=== PATIENT | female | born 1980 | race Caucasian/White ===

== ENCOUNTER 2021-01-06 00:44 | Emergency (ER) | payer OTHER ==
[2021-01-06 01:52] LABS: BASOPHIL 0.1 % (0-2); EOSINOPHIL 0 % (0-5); HCT 16.4 % (37.0-47.0); LYMPHOCYTE 5.5 % (15-48); MCH 34.4 pg (25.0-31.0); MCHC 32.3 g/dL (32.0-36.0); MCV 106.5 fL (78.0-100.0); MONOCYTE 12.6 % (0-12); MPV 11.2 fL (6.0-9.5); NEUTROPHIL 80.3 % (41-80); NRBC 1.1; RBC 1.54 M/uL (4.20-5.40); RDW 15.9 % (11.5-14.0); WBC 9.3 K/uL (4.0-10.5)
[2021-01-06 02:00] LABS: INR 2.13 (0.9-1.2); PROTHROMBIN TIME 22.7 SECONDS (11.4-13.6); PTT 39.8 SECONDS (22.2-34.7)
[2021-01-06 02:08] LABS: ALBUMIN 1.7 g/dL (3.4-5.0); BILIRUBIN - TOTAL 4.8 mg/dL (0.2-1.0); BUN/CREAT RATIO (CALC) 56.9 RATIO; CREATININE 0.65 mg/dL (0.51-0.95); GLOBULIN (CALCULATION) 4.5 g/dL; POTASSIUM 3.3 mmol/L (3.5-5.1); TOTAL PROTEIN 6.2 g/dL (6.4-8.2)
[2021-01-06 02:12] LABS: LACTIC ACID 6.8 mmol/L (0.4-1.9)
[2021-01-06 02:18] LABS: HGB 5.3 g/dl (12.5-16.0)
[2021-01-06 02:19] LABS: PLT 80 K/uL (150-400)
[2021-01-06 08:39] LABS: ACETAMINOPHEN (TYLENOL) < 2.0 ug/mL (10.0-30.0); PHOSPHORUS 2.3 mg/dL (2.6-4.7)
[2021-01-06 08:58] LABS: HCT 20.4 % (37.0-47.0); HGB 6.8 g/dL (12.5-16.0)
[2021-01-06 09:03] LABS: AMPHETAMINES NEGATIVE (NEGATIVE); BARBITURATES NEGATIVE (NEGATIVE); ECSTASY (MDMA) NEGATIVE (NEGATIVE); MARIJUANA (THC) NEGATIVE (NEGATIVE); METHADONE NEGATIVE (NEGATIVE); OPIATES NEGATIVE (NEGATIVE); OXYCODONE NEGATIVE (NEGATIVE)
[2021-01-06 09:04] LABS: BILIRUBIN 1+ mg/dL (NEGATIVE); BLOOD NEGATIVE Ery/uL (NEGATIVE); CLARITY CLEAR (CLEAR); GLUCOSE (U) TRACE mg/dL (NORMAL); LEUKOCYTES NEGATIVE Leu/uL (NEGATIVE); NITRITE NEGATIVE (NEGATIVE); PROTEIN NEGATIVE (NEGATIVE); SPECIFIC GRAVITY 1.015 (1.001-1.030)
[2021-01-06 09:05] LABS: COLOR AMBER (YELLOW)
[2021-01-06 09:15] LABS: BACTERIA TRACE; URINARY RBC RARE
[2021-01-06 09:16] LABS: BILIRUBIN CRYSTALS TRACE
[2021-01-06 10:30] LABS: HCT 20.1 % (37.0-47.0); HGB 6.6 g/dL (12.5-16.0)
[2021-01-06 15:49] LABS: HCT 25.7 % (37.0-47.0); HGB 8.1 g/dL (12.5-16.0)
== END 2021-01-06 15:40 | disposition other institution (70) ==
LOC: FER 00:44
PROVIDERS: Emergency Medicine; Emergency Medicine Emergency Medical Services
DX: K92.0 Hematemesis (principal); K74.60 Unspecified cirrhosis of liver; D64.9 Anemia, unspecified; K76.6 Portal hypertension; R00.0 Tachycardia, unspecified; Z20.822 Contact with and (suspected) exposure to COVID-19; R41.82 Altered mental status, unspecified
CPT/HCPCS: 36415; 36430; 70450; 71045; 72125; 80053; 80305; 81001; 82140; 82150; 82247; 83605; 83690; 84100; 84484; 85014; 85018; 85025; 85610; 85730; 86850; 86900; 86901; 86922; 87040; 87088; 93005; 96365; 96366; 96375; C9113; G0480; J2060; J2354; J2405; J2543; J3411; J3475; J7030; J7120; P9016; Q9967; U0002

== ENCOUNTER 2021-03-01 09:41 | Inpatient (IN) | payer OTHER ==
[~2021-03-01] VITALS: Ht 165.1 cm; Wt 77.3 kg
[2021-03-01 10:36] LABS: ALBUMIN 2.2 g/dL (3.4-5.0); BILIRUBIN - TOTAL 2.7 mg/dL (0.2-1.0); BUN/CREAT RATIO (CALC) 6.9 RATIO; CREATININE 0.58 mg/dL (0.51-0.95); GLOBULIN (CALCULATION) 6.6 g/dL; POTASSIUM 3.6 mmol/L (3.5-5.1); TOTAL PROTEIN 8.8 g/dL (6.4-8.2)
[2021-03-01 11:38] LABS: BASOPHIL 0.7 % (0-2); EOSINOPHIL 0 % (0-5); HCT 29.3 % (37.0-47.0); HGB 9.5 g/dl (12.5-16.0); LYMPHOCYTE 15.4 % (15-48); MCH 31.4 pg (25.0-31.0); MCHC 32.4 g/dL (32.0-36.0); MCV 96.7 fL (78.0-100.0); MONOCYTE 14.3 % (0-12); NRBC 0; RBC 3.03 M/uL (4.20-5.40); RDW 20.6 % (11.5-14.0); WBC 4.5 K/uL (4.0-10.5)
[2021-03-01 11:41] LABS: PLT 18 K/uL (150-400)
[2021-03-01 11:55] LABS: RETICULOCYTE COUNT 2.6 % (1.0-2.0)
[2021-03-01 12:27] LABS: BILIRUBIN NEGATIVE (NEGATIVE); BLOOD 3+ Ery/uL (NEGATIVE); CLARITY CLEAR (CLEAR); COLOR YELLOW (YELLOW); GLUCOSE (U) NORMAL (NORMAL); LEUKOCYTES NEGATIVE Leu/uL (NEGATIVE); NITRITE NEGATIVE (NEGATIVE); PROTEIN TRACE (LOW) mg/dL (NEGATIVE); UROBILINOGEN 0.2 mg/dL (0.2-1.0)
[2021-03-01 12:32] LABS: AMPHETAMINES NEGATIVE (NEGATIVE); BARBITURATES NEGATIVE (NEGATIVE); ECSTASY (MDMA) NEGATIVE (NEGATIVE); MARIJUANA (THC) NEGATIVE (NEGATIVE); METHADONE NEGATIVE (NEGATIVE); OPIATES NEGATIVE (NEGATIVE)
[2021-03-01 12:33] LABS: OXYCODONE NEGATIVE (NEGATIVE)
[2021-03-01 13:05] LABS: BACTERIA TRACE; URINARY WBC RARE
[2021-03-01 13:23] LABS: FOLIC ACID (SERUM) 12.6 ng/mL (8.6-58.9)
[2021-03-01 18:09] LABS: BUN/CREAT RATIO (CALC) 7.7 RATIO; CREATININE 0.65 mg/dL (0.51-0.95); MAGNESIUM 1.7 mg/dL (1.8-2.4); POTASSIUM 3.2 mmol/L (3.5-5.1)
[2021-03-02 06:14] LABS: INR 1.69 (0.9-1.2); PROTHROMBIN TIME 19.1 SECONDS (11.8-13.4); PTT 50.1 SECONDS (24.4-34.7)
[2021-03-02 07:28] LABS: BASOPHIL 0.2 % (0-2); EOSINOPHIL 0.2 % (0-5); HCT 26.8 % (37.0-47.0); HGB 8.7 g/dl (12.5-16.0); LYMPHOCYTE 10.1 % (15-48); MCHC 32.5 g/dL (32.0-36.0); MCV 95.4 fL (78.0-100.0); MONOCYTE 14.6 % (0-12); NEUTROPHIL 74.1 % (41-80); NRBC 0; RBC 2.81 M/uL (4.20-5.40); RDW 20.1 % (11.5-14.0); WBC 5.1 K/uL (4.0-10.5)
[2021-03-02 07:30] LABS: PLT 18 K/uL (150-400)
[2021-03-02 07:38] LABS: BILIRUBIN - TOTAL 3.3 mg/dL (0.2-1.0); BUN/CREAT RATIO (CALC) 15.1 RATIO; CREATININE 0.53 mg/dL (0.51-0.95); POTASSIUM 3.7 mmol/L (3.5-5.1)
[2021-03-03 03:58] LABS: BASOPHIL 0.2 % (0-2); EOSINOPHIL 0.2 % (0-5); HCT 24.7 % (37.0-47.0); HGB 8.2 g/dl (12.5-16.0); LYMPHOCYTE 10.1 % (15-48); MCH 30.9 pg (25.0-31.0); MCHC 33.2 g/dL (32.0-36.0); MCV 93.2 fL (78.0-100.0); MONOCYTE 17.9 % (0-12); MPV 11.9 fL (6.0-9.5); NEUTROPHIL 71.1 % (41-80); NRBC 0; RBC 2.65 M/uL (4.20-5.40); RDW 19.4 % (11.5-14.0); WBC 5.9 K/uL (4.0-10.5)
[2021-03-03 04:27] LABS: PLT 28 K/uL (150-400)
[2021-03-03 04:40] LABS: BUN/CREAT RATIO (CALC) 14.3 RATIO; CREATININE 0.49 mg/dL (0.51-0.95); POTASSIUM 3.5 mmol/L (3.5-5.1)
[2021-03-04 00:34] LABS: BILIRUBIN 2+ mg/dL (NEGATIVE); BLOOD 3+ Ery/uL (NEGATIVE); CLARITY CLEAR (CLEAR); COLOR YELLOW (YELLOW); GLUCOSE (U) NORMAL (NORMAL); LEUKOCYTES NEGATIVE Leu/uL (NEGATIVE); NITRITE NEGATIVE (NEGATIVE); PROTEIN NEGATIVE (NEGATIVE); UROBILINOGEN 0.2 mg/dL (0.2-1.0)
[2021-03-04 00:39] LABS: BACTERIA TRACE; URINARY RBC 20-50; URINARY WBC RARE
[2021-03-04 00:40] LABS: AMORPHOUS URATES CRYSTALS TRACE; MUCOUS MODERATE; SQUAMOUS EPITHELIAL CELLS RARE
[2021-03-04 06:23] LABS: BASOPHIL 0.3 % (0-2); HCT 25.2 % (37.0-47.0); LYMPHOCYTE 11.5 % (15-48); MCH 31.4 pg (25.0-31.0); MCHC 31.7 g/dL (32.0-36.0); MONOCYTE 22.7 % (0-12); NEUTROPHIL 64.2 % (41-80); NRBC 0; RBC 2.55 M/uL (4.20-5.40)
[2021-03-04 06:43] LABS: ALBUMIN 1.8 g/dL (3.4-5.0); BILIRUBIN - TOTAL 3.2 mg/dL (0.2-1.0); CREATININE 0.5 mg/dL (0.51-0.95); GLOBULIN (CALCULATION) 5.4 g/dL; MAGNESIUM 1.6 mg/dL (1.8-2.4); POTASSIUM 2.7 mmol/L (3.5-5.1); TOTAL PROTEIN 7.2 g/dL (6.4-8.2)
[2021-03-04 07:20] LABS: MCV 98.8 fL (78.0-100.0)
[2021-03-04 07:23] LABS: PLT 28 K/uL (150-400)
[2021-03-04 16:31] LABS: BUN/CREAT RATIO (CALC) 8.3 RATIO; CREATININE 0.48 mg/dL (0.51-0.95); MAGNESIUM 2.1 mg/dL (1.8-2.4); POTASSIUM 3.8 mmol/L (3.5-5.1)
[2021-03-05 06:05] LABS: BASOPHIL 0.5 % (0-2); HCT 22.1 % (37.0-47.0); LYMPHOCYTE 22.1 % (15-48); MCH 31.3 pg (25.0-31.0); MCHC 31.7 g/dL (32.0-36.0); MCV 98.7 fL (78.0-100.0); MONOCYTE 26.5 % (0-12); MPV 12.5 fL (6.0-9.5); NEUTROPHIL 48.9 % (41-80); NRBC 0; RBC 2.24 M/uL (4.20-5.40)
[2021-03-05 06:11] LABS: PLT 30 K/uL (150-400)
[2021-03-05 06:14] LABS: ALBUMIN 1.6 g/dL (3.4-5.0); BILIRUBIN - TOTAL 2.2 mg/dL (0.2-1.0); BUN/CREAT RATIO (CALC) 4.3 RATIO; CREATININE 0.46 mg/dL (0.51-0.95); GLOBULIN (CALCULATION) 5.1 g/dL; MAGNESIUM 1.7 mg/dL (1.8-2.4); POTASSIUM 3.4 mmol/L (3.5-5.1); TOTAL PROTEIN 6.7 g/dL (6.4-8.2)
--- NOTE | 2021-03-05 14:20 | NUR ---
03/05/21 A referral was made to the Resource [facility] Supervisor due to report of patient not having a PCP. Pietro reports patient to be current with Sach[facility]. However, she has had multiple missed appointments. Pietro will attempt to schedule a new appointment.
[2021-03-06 03:06] LABS: HBSAG SCREEN Negative (Negative); HEP B CORE AB, TOT Negative (Negative); HEP C VIRUS AB 7.8 (0.0-0.9); HIV SCREEN 4TH GENERATION WRFX Non Reactive (Non Reactive)
[2021-03-06 06:24] LABS: BASOPHIL 0.9 % (0-2); EOSINOPHIL 3.1 % (0-5); HCT 28.2 % (37.0-47.0); LYMPHOCYTE 19.7 % (15-48); MCH 30.6 pg (25.0-31.0); MCHC 31.9 g/dL (32.0-36.0); MCV 95.9 fL (78.0-100.0); MPV 11.9 fL (6.0-9.5); NEUTROPHIL 53.6 % (41-80); NRBC 0; RBC 2.94 M/uL (4.20-5.40); RDW 20.5 % (11.5-14.0); WBC 2.3 K/uL (4.0-10.5)
[2021-03-06 06:32] LABS: MONOCYTE 21.4 % (0-12); PLT 49 K/uL (150-400)
[2021-03-06 06:42] LABS: ALBUMIN 1.6 g/dL (3.4-5.0); BILIRUBIN - TOTAL 2.7 mg/dL (0.2-1.0); BUN/CREAT RATIO (CALC) 4.7 RATIO; CREATININE 0.43 mg/dL (0.51-0.95); GLOBULIN (CALCULATION) 4.9 g/dL; MAGNESIUM 1.8 mg/dL (1.8-2.4); POTASSIUM 3.2 mmol/L (3.5-5.1); TOTAL PROTEIN 6.5 g/dL (6.4-8.2)
[2021-03-06] MEDS ORDERED: LEVETIRACETAM500 MG PO (17:05)
[2021-03-06] MEDS ORDERED: KEFLEX250 MG PO (17:05)
[2021-03-06] MEDS ORDERED: VANCOMYCIN HCL250 MG PO (17:05)
[2021-03-06] MEDS ORDERED: PANTOPRAZOLE SO40 MG PO (17:05)
[2021-03-06] MEDS ORDERED: PROAMATINE5 MG PO (17:20)
[2021-03-06] MEDS ORDERED: VITAMIN B-1100 M1 PO (17:43)
[2021-03-06] MEDS ORDERED: DIAZEPAM 5MG TAB5 MG PO (17:43)
[2021-03-07 02:15] LABS: BASOPHIL 1.5 % (0-2); EOSINOPHIL 3.1 % (0-5); HCT 27.6 % (37.0-47.0); HGB 8.8 g/dl (12.5-16.0); LYMPHOCYTE 23.5 % (15-48); MCH 30.4 pg (25.0-31.0); MCHC 31.9 g/dL (32.0-36.0); MCV 95.5 fL (78.0-100.0); MONOCYTE 20.4 % (0-12); MPV 11.2 fL (6.0-9.5); NEUTROPHIL 50.7 % (41-80); NRBC 0; PLT 77 K/uL (150-400); RBC 2.89 M/uL (4.20-5.40); RDW 20.5 % (11.5-14.0); WBC 2.6 K/uL (4.0-10.5)
[2021-03-07 02:45] LABS: BUN/CREAT RATIO (CALC) 3.9 RATIO; CREATININE 0.51 mg/dL (0.51-0.95); FT4 (FREE T4) 1.3 ng/dL (0.76-1.46); POTASSIUM 4.1 mmol/L (3.5-5.1)
--- NOTE | 2021-03-07 09:24 | NUR ---
0924 PT DISCHARGE INSTRUCTIONS DISCUSSED WITH PT, PT VERBALIZED UNDERSTANDING. IV'S DC'D AT THIS TIME. PT TRANSPORTED TO PERSONAL CAR VIA WHEELCHAIR AT THIS TIME BY PCT.
--- NOTE | 2021-03-07 12:45 | NUR ---
03/07/21 Roselia sent a request for pre-auth to be sought through covermymeds for Vancom[facility]. The form was completed electronically and approved by [facility]. - A referral was made to the Resource regulatory analyst to arrange a gastorenterologist appontment per Dr. Moreno's request.
[2021-03-08 18:09] LABS: HEPATITIS C QUANTITATION HCV Not Detected IU/mL (.)
== END 2021-03-07 09:25 | disposition home or self-care (01) | DRG 101 ==
LOC: FER 09:41 → FICU 15:43 → FTCU 03-06 07:28
PROVIDERS: Allergy & Immunology Allergy; Emergency Medicine; Nurse Practitioner; ADMIT Internal Medicine
PROC: 30233N1 Transfusion of Nonautologous Red Blood Cells into Peripheral Vein, Percutaneous Approach (ICD-10-PCS; principal; 2021-03-05)
DX: G40.909 Epilepsy, unspecified, not intractable, without status epilepticus (principal); A04.72 Enterocolitis due to Clostridium difficile, not specified as recurrent; L03.115 Cellulitis of right lower limb; D61.818 Other pancytopenia; E87.1 Hypo-osmolality and hyponatremia; F10.131 Alcohol abuse with withdrawal delirium; B19.20 Unspecified viral hepatitis C without hepatic coma; D64.9 Anemia, unspecified; D69.6 Thrombocytopenia, unspecified; D72.819 Decreased white blood cell count, unspecified; Z80.8 Family history of malignant neoplasm of other organs or systems; F17.210 Nicotine dependence, cigarettes, uncomplicated; K70.30 Alcoholic cirrhosis of liver without ascites; F14.10 Cocaine abuse, uncomplicated; F10.10 Alcohol abuse, uncomplicated; Z20.822 Contact with and (suspected) exposure to COVID-19; Y90.2 Blood alcohol level of 40-59 mg/100 ml; R50.9 Fever, unspecified
CPT/HCPCS: 36415; 36430; 70450; 70486; 71045; 80048; 80053; 80202; 80305; 81001; 82595; 82607; 82746; 83540; 83550; 83605; 83735; 84295; 84439; 84443; 84703; 85025; 85610; 85730; 86038; 86704; 86706; 86708; 86803; 86850; 86900; 86901; 86922; 87040; 87045; 87046; 87077; 87186; 87205; 87324; 87340; 87389; 87449; 87493; 87522; 93971; 97161; 97166; 97535; G0480; J0610; J0696; J1940; J1953; J2185; J2543; J3370; J3411; J3475; J7040; J7050; J7120; J7131; P9016; Q9967; U0002

== ENCOUNTER 2021-11-05 20:48 | Inpatient (IN) | payer OTHER ==
[~2021-11-05] VITALS: Ht 165.1 cm; Wt 81.8 kg
[~2021-11-05 20:48] MED LIST: DIAZEPAM 5MG TAB5 MG PO; KEFLEX250 MG PO; LEVETIRACETAM500 MG PO; PANTOPRAZOLE SO40 MG PO; PROAMATINE5 MG PO; VANCOMYCIN HCL250 MG PO; VITAMIN B-1100 M1 PO
[2021-11-05 21:30] LABS: BASOPHIL 0.5 % (0-2); EOSINOPHIL 0.5 % (0-5); HCT 27.3 % (37.0-47.0); HGB 9.2 g/dl (12.5-16.0); LYMPHOCYTE 16.4 % (15-48); MCH 37.6 pg (25.0-31.0); MCHC 33.7 g/dL (32.0-36.0); MCV 111.4 fL (78.0-100.0); MONOCYTE 3.2 % (0-12); MPV 9.3 fL (6.0-9.5); NEUTROPHIL 74.4 % (41-80); NRBC 0.9; RBC 2.45 M/uL (4.20-5.40); RDW 14.6 % (11.5-14.0); WBC 2.2 K/uL (4.0-10.5)
[2021-11-05 21:31] LABS: BILIRUBIN 1+ mg/dL (NEGATIVE); BLOOD 3+ Ery/uL (NEGATIVE); CLARITY HAZY (CLEAR); COLOR YELLOW (YELLOW); GLUCOSE (U) NORMAL (NORMAL); LEUKOCYTES 1+ Leu/uL (NEGATIVE); NITRITE NEGATIVE (NEGATIVE); PROTEIN NEGATIVE (NEGATIVE)
[2021-11-05 21:35] LABS: INR 2.11 (0.9-1.2); PROTHROMBIN TIME 22.8 SECONDS (11.8-13.4)
[2021-11-05 21:38] LABS: BACTERIA 4+; URINARY WBC 20-50
[2021-11-05 21:49] LABS: PLT 28 K/uL (150-400)
[2021-11-05 21:51] LABS: ALBUMIN 1.9 g/dL (3.4-5.0); BILIRUBIN - TOTAL 6.5 mg/dL (0.2-1.0); BUN/CREAT RATIO (CALC) 8.8 RATIO; CREATININE 0.57 mg/dL (0.51-0.95); POTASSIUM 3.2 mmol/L (3.5-5.1); TOTAL PROTEIN 7.9 g/dL (6.4-8.2)
[2021-11-05 21:56] LABS: LACTIC ACID 4.1 mmol/L (0.4-1.9)
[2021-11-05 22:50] LABS: INFLUENZA A NAA NEGATIVE (NEGATIVE)
[2021-11-05 22:51] LABS: CORONAVIRUS 2019 SARS-COV-2 POSITIVE (NEGATIVE)
[2021-11-06 06:05] LABS: BASOPHIL 0.6 % (0-2); EOSINOPHIL 0 % (0-5); HCT 22.1 % (37.0-47.0); HGB 7.3 g/dl (12.5-16.0); LYMPHOCYTE 6.7 % (15-48); MCH 37.6 pg (25.0-31.0); MCV 113.9 fL (78.0-100.0); MONOCYTE 6.1 % (0-12); MPV 10.4 fL (6.0-9.5); NEUTROPHIL 85.4 % (41-80); NRBC 0; RBC 1.94 M/uL (4.20-5.40); RDW 14.9 % (11.5-14.0)
[2021-11-06 06:09] LABS: PLT 14 K/uL (150-400); WBC 1.6 K/uL (4.0-10.5)
[2021-11-06 06:41] LABS: ALBUMIN 1.9 g/dL (3.4-5.0); BILIRUBIN - DIRECT 3.4 mg/dL (0.00-0.20); BILIRUBIN - TOTAL 6.5 mg/dL (0.2-1.0); BUN/CREAT RATIO (CALC) 6.2 RATIO; C-REACTIVE PROTEIN 1.4 mg/dL (<=0.90); CREATININE 0.64 mg/dL (0.51-0.95); GLOBULIN (CALCULATION) 4.9 g/dL; MAGNESIUM 1.7 mg/dL (1.8-2.4); PHOSPHORUS 2.7 mg/dL (2.6-4.7); POTASSIUM 2.9 mmol/L (3.5-5.1); TOTAL PROTEIN 6.8 g/dL (6.4-8.2)
--- NOTE | 2021-11-06 13:58 | NUR ---
11/06/21 Will follow for appropriate time for a social assessment to be conducted.
[2021-11-07 06:26] LABS: BASOPHIL 0.5 % (0-2); EOSINOPHIL 0 % (0-5); HCT 21.8 % (37.0-47.0); LYMPHOCYTE 10.7 % (15-48); MCH 37.8 pg (25.0-31.0); MCHC 32.1 g/dL (32.0-36.0); MCV 117.8 fL (78.0-100.0); MONOCYTE 6.3 % (0-12); MPV 12.3 fL (6.0-9.5); NEUTROPHIL 81.5 % (41-80); NRBC 0; RBC 1.85 M/uL (4.20-5.40); RDW 15.2 % (11.5-14.0); WBC 2.1 K/uL (4.0-10.5)
[2021-11-07 06:28] LABS: PLT 14 K/uL (150-400)
[2021-11-07 07:02] LABS: BUN/CREAT RATIO (CALC) 21.1 RATIO; CREATININE 0.57 mg/dL (0.51-0.95); MAGNESIUM 2.1 mg/dL (1.8-2.4); POTASSIUM 3.4 mmol/L (3.5-5.1)
[2021-11-08 06:01] LABS: BASOPHIL 0.2 % (0-2); EOSINOPHIL 0 % (0-5); HCT 21.9 % (37.0-47.0); HGB 7.1 g/dl (12.5-16.0); LYMPHOCYTE 8.7 % (15-48); MCH 37.6 pg (25.0-31.0); MCHC 32.4 g/dL (32.0-36.0); MCV 115.9 fL (78.0-100.0); MONOCYTE 6.5 % (0-12); MPV 11.6 fL (6.0-9.5); NEUTROPHIL 82.8 % (41-80); NRBC 0.7; RBC 1.89 M/uL (4.20-5.40); RDW 15.4 % (11.5-14.0)
[2021-11-08 06:03] LABS: PLT 22 K/uL (150-400)
[2021-11-08 06:05] LABS: INR 2.75 (0.9-1.2); PROTHROMBIN TIME 28.1 SECONDS (11.8-13.4)
[2021-11-08 06:34] LABS: ALBUMIN 2.4 g/dL (3.4-5.0); BUN/CREAT RATIO (CALC) 21.8 RATIO; CREATININE 0.55 mg/dL (0.51-0.95); GLOBULIN (CALCULATION) 4.3 g/dL; MAGNESIUM 1.8 mg/dL (1.8-2.4); POTASSIUM 3.8 mmol/L (3.5-5.1); TOTAL PROTEIN 6.7 g/dL (6.4-8.2); VANCOMYCIN, TROUGH 9.2 ug/mL (10-20)
[2021-11-09 05:44] LABS: BASOPHIL 0.3 % (0-2); EOSINOPHIL 0 % (0-5); HCT 26.5 % (37.0-47.0); LYMPHOCYTE 7.4 % (15-48); MCH 38.1 pg (25.0-31.0); MCV 112.3 fL (78.0-100.0); MONOCYTE 11.8 % (0-12); MPV 11.9 fL (6.0-9.5); NEUTROPHIL 76.4 % (41-80); NRBC 0.8; RBC 2.36 M/uL (4.20-5.40); WBC 8.7 K/uL (4.0-10.5)
[2021-11-09 05:48] LABS: INR 2.55 (0.9-1.2); PROTHROMBIN TIME 26.5 SECONDS (11.8-13.4)
[2021-11-09 05:49] LABS: PLT 39 K/uL (150-400)
[2021-11-09 05:56] LABS: ALBUMIN 1.9 g/dL (3.4-5.0); BILIRUBIN - TOTAL 10.3 mg/dL (0.2-1.0); BUN/CREAT RATIO (CALC) 22.9 RATIO; CREATININE 0.48 mg/dL (0.51-0.95); GLOBULIN (CALCULATION) 4.5 g/dL; POTASSIUM 3.8 mmol/L (3.5-5.1); TOTAL PROTEIN 6.4 g/dL (6.4-8.2)
[2021-11-10 06:16] LABS: BASOPHIL 0.4 % (0-2); EOSINOPHIL 0.1 % (0-5); HCT 25.8 % (37.0-47.0); HGB 8.8 g/dl (12.5-16.0); MCH 38.4 pg (25.0-31.0); MCHC 34.1 g/dL (32.0-36.0); MCV 112.7 fL (78.0-100.0); MONOCYTE 17.3 % (0-12); MPV 11.3 fL (6.0-9.5); NEUTROPHIL 62.3 % (41-80); NRBC 2.2; RBC 2.29 M/uL (4.20-5.40); RDW 14.8 % (11.5-14.0)
[2021-11-10 06:17] LABS: PLT 53 K/uL (150-400); WBC 9.8 K/uL (4.0-10.5)
[2021-11-10 06:20] LABS: INR 2.52 (0.9-1.2); PROTHROMBIN TIME 26.2 SECONDS (11.8-13.4)
[2021-11-10 06:47] LABS: ALBUMIN 1.8 g/dL (3.4-5.0); BILIRUBIN - TOTAL 9.4 mg/dL (0.2-1.0); BUN/CREAT RATIO (CALC) 19.6 RATIO; CREATININE 0.46 mg/dL (0.51-0.95); GLOBULIN (CALCULATION) 4.3 g/dL; POTASSIUM 3.8 mmol/L (3.5-5.1); TOTAL PROTEIN 6.1 g/dL (6.4-8.2)
[2021-11-12 06:15] LABS: BASOPHIL 0.3 % (0-2); EOSINOPHIL 0.4 % (0-5); HCT 24.9 % (37.0-47.0); HGB 8.3 g/dl (12.5-16.0); LYMPHOCYTE 11.6 % (15-48); MCH 38.4 pg (25.0-31.0); MCHC 33.3 g/dL (32.0-36.0); MCV 115.3 fL (78.0-100.0); MONOCYTE 21.6 % (0-12); MPV 11.7 fL (6.0-9.5); NRBC 0.4; RBC 2.16 M/uL (4.20-5.40); RDW 16.5 % (11.5-14.0); WBC 7.3 K/uL (4.0-10.5)
[2021-11-12 06:21] LABS: INR 2.47 (0.9-1.2); PROTHROMBIN TIME 25.8 SECONDS (11.8-13.4)
[2021-11-12 06:41] LABS: PLT 59 K/uL (150-400)
[2021-11-12 06:56] LABS: ALBUMIN 1.9 g/dL (3.4-5.0); BUN/CREAT RATIO (CALC) 16.7 RATIO; CREATININE 0.48 mg/dL (0.51-0.95); GLOBULIN (CALCULATION) 4.4 g/dL; POTASSIUM 3.5 mmol/L (3.5-5.1); TOTAL PROTEIN 6.3 g/dL (6.4-8.2)
[2021-11-12 07:02] LABS: BILIRUBIN - TOTAL 6.7 mg/dL (0.2-1.0)
[2021-11-12] MEDS ORDERED: PANTOPRAZOLE SO40 MG PO (16:00)
[2021-11-12] MEDS ORDERED: LASIX20 MG PO (16:00)
[2021-11-12] MEDS ORDERED: ALDACTONE50 MG PO (16:00)
[2021-11-12] MEDS ORDERED: LEVETIRACETAM500 MG PO (16:00)
[2021-11-12] MEDS ORDERED: LEVAQUIN750 MG PO (16:00)
[2021-11-12] MEDS ORDERED: VITAMIN B-1100 M1 PO (16:00)
== END 2021-11-12 17:08 | disposition home or self-care (01) | DRG 871 ==
LOC: FER 20:48 → FICU 11-06 03:20 → FTCU 11-06 03:20 → FICU 11-06 11:32 → FMS 11-09 14:57
PROVIDERS: Emergency Medicine; Internal Medicine; Nurse Practitioner; ADMIT Internal Medicine
PROC: 3E03329 Introduction of Other Anti-infective into Peripheral Vein, Percutaneous Approach (ICD-10-PCS; 2021-11-05)
PROC: XW033E5 Introduction of Remdesivir Anti-infective into Peripheral Vein, Percutaneous Approach, New Technology Group 5 (ICD-10-PCS; principal; 2021-11-06)
PROC: 3E0333Z Introduction of Anti-inflammatory into Peripheral Vein, Percutaneous Approach (ICD-10-PCS; 2021-11-06)
PROC: 3E033XZ Introduction of Vasopressor into Peripheral Vein, Percutaneous Approach (ICD-10-PCS; 2021-11-06)
PROC: 8E0ZXY6 Isolation (ICD-10-PCS; 2021-11-06)
PROC: HZ2ZZZZ Detoxification Services for Substance Abuse Treatment (ICD-10-PCS; 2021-11-06)
DX: A41.51 Sepsis due to Escherichia coli [E. coli] (principal); R65.21 Severe sepsis with septic shock; G93.41 Metabolic encephalopathy; U07.1 COVID-19; K72.00 Acute and subacute hepatic failure without coma; N30.01 Acute cystitis with hematuria; K76.6 Portal hypertension; I85.10 Secondary esophageal varices without bleeding; D61.818 Other pancytopenia; F10.231 Alcohol dependence with withdrawal delirium; K70.11 Alcoholic hepatitis with ascites; K70.31 Alcoholic cirrhosis of liver with ascites; D63.8 Anemia in other chronic diseases classified elsewhere; K80.20 Calculus of gallbladder without cholecystitis without obstruction; K52.9 Noninfective gastroenteritis and colitis, unspecified; G40.909 Epilepsy, unspecified, not intractable, without status epilepticus; F17.210 Nicotine dependence, cigarettes, uncomplicated; Z79.899 Other long term (current) drug therapy; Z98.890 Other specified postprocedural states
CPT/HCPCS: 36415; 70450; 71250; 71275; 74183; 80048; 80053; 80202; 81001; 82140; 82248; 82728; 82977; 83605; 83615; 83735; 83880; 84100; 84145; 84484; 85025; 85379; 85610; 86140; 87040; 87076; 87077; 87088; 87186; 93005; 94010; A9579; C9113; C9399; J0610; J0696; J1100; J1885; J2060; J2405; J2543; J2920; J3370; J3411; J3430; J3475; J3480; J7030; J7040; J7050; P9047; Q9967; U0002

== ENCOUNTER 2022-01-19 03:00 | Emergency (ER) | payer OTHER ==
[~2022-01-19 03:00] MED LIST changes: +ALDACTONE50 MG PO; +LASIX20 MG PO; +LEVAQUIN750 MG PO
[2022-01-19 05:09] LABS: BASOPHIL 0.2 % (0-2); EOSINOPHIL 0 % (0-5); HCT 22.1 % (37.0-47.0); HGB 7.7 g/dl (12.5-16.0); LYMPHOCYTE 9.5 % (15-48); MCH 36.8 pg (25.0-31.0); MCHC 34.8 g/dL (32.0-36.0); MCV 105.7 fL (78.0-100.0); MONOCYTE 13.9 % (0-12); NEUTROPHIL 75.5 % (41-80); NRBC 0; RBC 2.09 M/uL (4.20-5.40); RDW 14.1 % (11.5-14.0); WBC 4.6 K/uL (4.0-10.5)
[2022-01-19 05:21] LABS: BILIRUBIN - TOTAL 8.3 mg/dL (0.2-1.0); BUN/CREAT RATIO (CALC) 18.8 RATIO; CREATININE 0.69 mg/dL (0.51-0.95); GLOBULIN (CALCULATION) 4.9 g/dL; POTASSIUM 3.3 mmol/L (3.5-5.1); TOTAL PROTEIN 6.9 g/dL (6.4-8.2)
[2022-01-19 05:23] LABS: PLT 19 K/uL (150-400)
[2022-01-19 07:33] LABS: CORONAVIRUS 2019 SARS-COV-2 NEGATIVE (NEGATIVE); INFLUENZA A NAA NEGATIVE (NEGATIVE)
[2022-01-19 07:52] LABS: BILIRUBIN 2+ mg/dL (NEGATIVE); BLOOD 3+ Ery/uL (NEGATIVE); GLUCOSE (U) NORMAL (NORMAL); LEUKOCYTES 2+ Leu/uL (NEGATIVE); NITRITE POSITIVE (NEGATIVE); PROTEIN 3+ mg/dL (NEGATIVE); SPECIFIC GRAVITY 1.015 (1.001-1.030); pH 6.5 (5.0-9.0)
[2022-01-19 07:57] LABS: CLARITY CLOUDY (CLEAR); COLOR BROWN (YELLOW)
[2022-01-19 08:00] LABS: BACTERIA 2+; URINARY RBC TNTC; URINARY WBC 20-50
== END 2022-01-19 12:41 | disposition other institution (70) ==
LOC: FER 03:00
PROVIDERS: Internal Medicine
DX: G40.909 Epilepsy, unspecified, not intractable, without status epilepticus (principal); F10.239 Alcohol dependence with withdrawal, unspecified; E87.1 Hypo-osmolality and hyponatremia; D64.9 Anemia, unspecified; D69.6 Thrombocytopenia, unspecified; F17.210 Nicotine dependence, cigarettes, uncomplicated; Z20.822 Contact with and (suspected) exposure to COVID-19; Z28.310 Unvaccinated for COVID-19; Y90.0 Blood alcohol level of less than 20 mg/100 ml
CPT/HCPCS: 36415; 36600; 70450; 71045; 80053; 81001; 82803; 83605; 83690; 84145; 85025; 86850; 86900; 86901; 87040; 87076; 87088; 87186; 96365; 96375; 96376; G0480; J1953; J2060; J2543; J3411; J3475; J7030; J7120; U0002